=== PATIENT | male | born 1950 | race Caucasian/White ===

== ENCOUNTER 2023-03-23 07:28 | Observation (INO) ==
[~2023-03-23 07:28] MED LIST: NS 0.9% 1000 ml BAG 1,000 ML IV ONE
[2023-03-23] MEDS ORDERED: Heparin 1,000 UNIT/ML 10 ml (10,000 UNITS) CATHLAB/DIALYSIS ONE (08:36)
[2023-03-23] MEDS ORDERED: Heparin 2 UNITS/ML 1000 mls 2,000 ML IV ONE (08:36)
[2023-03-23] MEDS ORDERED: VERAPAMIL 2.5 MG/ML 2 ML VIAL ** 5 mg/2 ml ONE (08:36)
[2023-03-23] MEDS ORDERED: Midazolam 5 mg/5 ml VIAL 1 mg/ml 5 ml VIAL (5 mg) ONE (08:36)
[2023-03-23] MEDS ORDERED: fentaNYL 100 mcg/2 ml 50 MCG/ML VIAL ONE (08:36)
[2023-03-23] MEDS ORDERED: nitroGLYCERIN DRIP 25,000 MCG/250 ML BTL ONE (08:37)
[2023-03-23] MEDS ORDERED: Lidocaine 1% MPF 5 ML VIAL ONE (08:37)
[2023-03-23] MEDS ORDERED: Iohexol 350 (CONTRAST) 200 ML MDV IV ONE (08:38)
[2023-03-23] MEDS ORDERED: Midazolam 10 mg/10 ml VIAL 1 mg/ml 10 ml VIAL (10 mg) IV SLOW PU ONE (09:03)
[2023-03-23] MEDS ORDERED: fentaNYL 100 mcg/2 ml 50 MCG/ML VIAL IV SLOW PU ONE (09:03)
[2023-03-23] MEDS ORDERED: Bivalirudin 250 MG VIAL ONE ×2 (09:31→10:05)
[2023-03-23] MEDS ORDERED: Atropine 0.1 MG/ML 10 ml SYR (1 mg) ONE (09:39)
[2023-03-23] MEDS ORDERED: Heparin 2 UNITS/ML 1000 mls 1,000 ML IV ONE (09:39)
[2023-03-23] MEDS ORDERED: NS 0.9% 1000 ml BAG 1,000 ML IV SCH (11:15)
[2023-03-23 16:28] LABS: Calcium 8.5 mg/dL (8.6-10.3); Magnesium 2.1 mg/dL (1.9-2.7)
[2023-03-23 16:33] LABS: Creatinine, Serum 0.85 mg/dL (0.67-1.17); eGFR CKD-EPI 91.2 (>60)
[2023-03-23] MEDS: GLUCOSAMINE CHONDROITIN PO SCH (20:07)
[2023-03-23] MEDS ORDERED: Enoxaparin 40 MG/0.4 ML SYR SUBCUT SCH (21:00)
[2023-03-24 06:01] LABS: ABS Eosinophils 0.1 10^3/uL (0.0-0.5); ABS Lymphocytes 1.7 10^3/uL (1.0-4.8); ABS Monocytes 0.5 10^3/uL (0.0-1.1); ABS Neutrophils 3.6 10^3/uL (1.5-7.6); Eosinophil % 1.6 %; Hematocrit 33.2 % (38-53); Hemoglobin 11.6 g/dL (13.2-16.3); Lymphocyte % 29.3 %; Mean Corpuscular Hemoglobin 32.4 pg (27-33); Mean Corpuscular Volume 92.8 fL (80-97); Mean Platelet Volume 6.8 fL (7.5-11.2); Platelet Count 171 10^3/uL (150-450); Red Blood Count 3.58 10^6/uL (4.06-5.63); Red Cell Distribution Width 13.5 % (12-17)
[2023-03-24 06:34] LABS: Creatinine, Serum 0.7 mg/dL (0.67-1.17); Potassium 3.4 mmol/L (3.5-5.0); eGFR CKD-EPI 96.7 (>60)
[2023-03-24 06:37] LABS: Calcium 6.3 mg/dL (8.6-10.3)
[2023-03-24] MEDS ORDERED: Influenza vaccine *QUAD* *2023-24* 0.5 ML SYRINGE IM ONE (09:00)
[2023-03-24] MEDS ORDERED: Potassium Chlor 20 meq TAB.ER PO ONE (09:14)
[2023-03-24 09:33] LABS: Magnesium 1.6 mg/dL (1.9-2.7)
[2023-03-24 10:23] LABS: Calcium 8.7 mg/dL (8.6-10.3); Potassium 4.2 mmol/L (3.5-5.0)
[2023-03-24 10:29] LABS: Creatinine, Serum 0.96 mg/dL (0.67-1.17); eGFR CKD-EPI 82.9 (>60)
[2023-03-24 10:35] LABS: HDL Cholesterol 37.1 mg/dL
[2023-03-24] MEDS: GLUCOSAMINE CHONDROITIN PO SCH (11:18)
[2023-03-24 13:13] VITALS: BP 133/80
== END 2023-03-24 13:00 | disposition home or self-care (01) ==
LOC: CHICATH 07:28 → INTOOBSV 12:10 → ICU 12:10